=== PATIENT | male | born 1950 | race Caucasian/White ===

== ENCOUNTER 2020-01-10 19:18 | Emergency (ER) | payer OTHER ==
[~2020-01-10] VITALS: Ht 172.7 cm; Wt 86.2 kg
[~2020-01-10 19:18] MED LIST: AUGMENTIN 875 M1 TAB PO; DARVOCET N 1001 TAB PO; KEFLEX500 MG PO; VIBRAMYCIN100 MG PO
== END 2020-01-10 20:07 | disposition home or self-care (01) ==
LOC: ED 19:18
DX: S01.01XA Laceration without foreign body of scalp, initial encounter (principal); W17.89XA Other fall from one level to another, initial encounter; Y93.89 Activity, other specified; Y92.89 Other specified places as the place of occurrence of the external cause; Y99.8 Other external cause status

== ENCOUNTER 2022-04-01 21:41 | Emergency (ER) | payer BC | END 2022-04-01 22:35 | disposition home or self-care (01) | LOC: ED 21:41 | DX: S61.210A Laceration without foreign body of right index finger without damage to nail, initial encounter (principal); W45.8XXA Other foreign body or object entering through skin, initial encounter; Y93.89 Activity, other specified; Y92.89 Other specified places as the place of occurrence of the external cause; Y99.8 Other external cause status ==